=== PATIENT | male | born 1950 | race Caucasian/White ===

== ENCOUNTER 2019-09-09 12:05 | Emergency (ER) | payer OTHER ==
[~2019-09-09] VITALS: Ht 180.3 cm; Wt 90.7 kg
[~2019-09-09 12:05] MED LIST: ALEVE220 MG PO; ALLEGRA ALLERGY60 MG PO; AUGMENTIN 500-1 EACH PO; IBUPROFEN 600600 M1 PO; NORCO 5-325 TA1 EACH PO
[2019-09-09 13:24] LABS: URINE BILIRUBIN NEGATIVE (Negative); URINE BLOOD NEGATIVE (Negative); URINE CLARITY CLEAR; URINE COLOR YELLOW; URINE GLUCOSE-RANDOM* NEGATIVE (Negative); URINE KETONES NEGATIVE (Negative); URINE LEUKOCYTES-REFLEX NEGATIVE (Negative); URINE NITRITE-REFLEX NEGATIVE (Negative); URINE PROTEIN (DIPSTICK) NEGATIVE (Negative); URINE UROBILINOGEN 0.2 E.U./dl (0.2-1.0)
[2019-09-09] MEDS ORDERED: NORFLEX100 MG PO (13:34)
[2019-09-09] MEDS ORDERED: NAPROSYN500 MG PO (13:34)
[2019-09-09 13:42] VITALS: BP 123/75
== END 2019-09-09 13:47 | disposition home or self-care (01) ==
LOC: ER 12:05
PROVIDERS: Physician Assistant
DX: M54.5 Low back pain (principal); M54.6 Pain in thoracic spine; M62.830 Muscle spasm of back; F17.210 Nicotine dependence, cigarettes, uncomplicated; Z88.5 Allergy status to narcotic agent